=== PATIENT | female | born 1960 | race Caucasian/White ===

== ENCOUNTER 2018-03-05 19:38 | Inpatient (IN) | payer MEDICARE, MEDICAID ==
[~2018-03-05] VITALS: Ht 172.7 cm; Wt 148.8 kg
--- NOTE | 2018-03-05 19:45 | NUR ---
TO BED 9 A 58 YO FEMALE PATIENT BIBRA FROM [facility] FOR SOB AND ANXIETY SINCE 3PM 02 SAT 95% ON 3L ON ARRIVAL. PATIENT IS AAOX3, NAD NOTED. VSS. SKIN WARM AND DRY. KEPT HOB ELEVATED. COMFORT MEASURES RENDERED.
[2018-03-05] MEDS ORDERED: ALBUTEROL FS 2.5 MG/3 ML VIAL.NEB NEB ONE (21:00)
[2018-03-05 21:13] LABS: BASOPHILS % (AUTO) 0.5 % (0.0-2.0); EOSINOPHILS % (AUTO) 3.5 % (0.0-6.0); HEMATOCRIT 39 % (33-45); HEMOGLOBIN 13.3 g/dL (11.5-14.8); LYMPHOCYTES # (AUTO) 2.3 /CMM (0.8-4.8); LYMPHOCYTES % (AUTO) 38.2 % (20.0-44.0); MEAN CORPUSCULAR HGB CONC 34 g/dl (31.0-36.0); MEAN CORPUSCULAR VOLUME 83 fL (82-100); MONOCYTES # (AUTO) 0.3 /CMM (0.1-1.30); MONOCYTES % (AUTO) 5.7 % (2.0-12.0); NEUTROPHILS # (AUTO) 3.2 /CMM (1.8-8.9); NEUTROPHILS % (AUTO) 52.1 % (43.0-81.0); PLATELET COUNT (AUTO) 131 /CMM (150-450); RDW COEFFICIENT OF VARIATION 13.2 (11.5-15.0); RED BLOOD CELL COUNT(AUTO) 4.71 MIL/uL (4.0-5.2)
[2018-03-05] MEDS ORDERED: ALBUTEROL FS 2.5 MG/3 ML VIAL.NEB ONE (21:19)
[2018-03-05 21:28] LABS: CALCIUM, SERUM 8.4 mg/dL (8.5-10.1); CARBON DIOXIDE 32 mmol/L (21-32); CHLORIDE 105 mmol/L (98-107); CREATININE 0.9 mg/dL (0.6-1.3); GLUCOSE 120 mg/dL (74-106); POTASSIUM 4.1 mmol/L (3.5-5.1); SODIUM SERUM 141 mmol/L (136-145); UREA NITROGEN, BLOOD 26 mg/dL (7-18)
--- NOTE | 2018-03-05 21:35 | NUR ---
URINE COLLECTED VIA ASEPTIC IN-OUT CATHETER. SAMPLE TAKEN AND SENT TO LAB.
--- NOTE | 2018-03-05 21:35 | NUR ---
ONGOING BREATHING TREATMENT AT THIS TIME.
[2018-03-05 21:36] LABS: TROPONIN I < 0.017 ng/mL (0.00-0.056)
[2018-03-05] MEDS ORDERED: predniSONE 20 MG TABLET PO ONE (22:00)
[2018-03-05] MEDS ORDERED: predniSONE 20 MG TABLET ONE (22:02)
--- NOTE | 2018-03-06 00:05 | NUR ---
PT ASSIGNED TO TELE 111-1
[2018-03-06] MEDS ORDERED: predniSONE 20 MG TABLET PO ONE (00:28)
[2018-03-06] MEDS ORDERED: ENOXAPARIN SODIUM 40 MG/0.4 ML DISP.SYRIN SQ SCH (00:30)
[2018-03-06] MEDS ORDERED: MAGNESIUM HYDROXIDE 30 ML UDC PO PRN (00:30)
[2018-03-06] MEDS ORDERED: ALBUTEROL FS 2.5 MG/0.5 ML VIAL.NEB NEB ONE (00:30)
[2018-03-06] MEDS ORDERED: MORPHINE SULFATE INJ 2 MG/ML DISP.SYRIN IV PRN (00:30)
[2018-03-06] MEDS ORDERED: ONDANSETRON HCL/PF 4 MG/2 ML VIAL IVP PRN (00:30)
[2018-03-06] MEDS ORDERED: HYDROCODONE/APAP 5/325MG 1 EACH TABLET PO PRN (00:30)
[2018-03-06] MEDS ORDERED: MAG HYDROX/AL HYDROX/SIMETH 30 ML UDC PO PRN (00:30)
[2018-03-06] MEDS ORDERED: Z GUARD REMEDY 2 OZ OINT TP PRN (00:30)
[2018-03-06] MEDS ORDERED: IV NS 0.9% 500 ML BAG IV ONE (00:30)
[2018-03-06] MEDS: predniSONE 20 MG TABLET PO SCH ×2 (00:30→08:18)
[2018-03-06] MEDS ORDERED: IPRATROPIUM NEB FS 0.5 MG/2.5 ML AMPUL.NEB NEB ONE (00:30)
--- NOTE | 2018-03-06 00:52 | NUR ---
REPORT GIVEN TO DMITRI GUTHRIE FOR POORNIMA.
--- NOTE | 2018-03-06 01:18 | NUR ---
TRANSFERRED PATIENT TO TELE BED VIA ALS PROTOCOL, NO INCIDENT NOTED.
--- NOTE | 2018-03-06 01:44 | NUR ---
REHAB NURSE NOTES RECEIVED FROM ER, WITH VINNY RN AND TRANSPORT TEAM. PT VITAL SIGNS CHECKED, V/S STABLE. ON NASAL CANNULA 2L. SATURATING 92. WILL CONTINUE TO MONITOR PT CLOSELY.
[2018-03-06] MEDS ORDERED: AZITHROMYCIN 500 MG VIAL ONE (01:57)
[2018-03-06] MEDS: AZITHROMYCIN 500 MG in IV D5W 250 ML IV SCH ×2 (02:20→23:59)
[2018-03-06] MEDS: IV D5/0.45 NACL 1,000 ML IV PRN (02:22)
--- NOTE | 2018-03-06 02:40 | NUR ---
RN NOTES PREDNISONE 4OMG NOT GIVEN, CLARIFIED WITH HILARIA MORRIS SINCE 60 MG WAS GIVEN IN ER @2200. AFTER HOUR PHARMACY MADE AWARE.
[2018-03-06] MEDS ORDERED: MELO-107 PO (03:08)
[2018-03-06] MEDS ORDERED: BENZ1TAB7 PO (03:08)
[2018-03-06] MEDS ORDERED: OMEP20CA10 PO (03:08)
[2018-03-06] MEDS ORDERED: LEVE250T2 PO (03:08)
[2018-03-06] MEDS ORDERED: LEVO150T8 PO (03:08)
[2018-03-06] MEDS ORDERED: ALBUTEROL FS 2.5 MG/0.5 ML VIAL.NEB NEB PRN (03:30)
[2018-03-06] MEDS ORDERED: IPRATROPIUM NEB FS 0.5 MG/2.5 ML AMPUL.NEB NEB PRN ×2 (03:30→07:30)
[2018-03-06 04:00] VITALS: BP 143/96
--- NOTE | 2018-03-06 07:19 | NUR ---
STRATEGY MANAGER NOTES NO ACUTE CHANGES NOTED DURING THE SHIFT. PROVIDED COMFORT AND SAFETY. DUE MEDS GIVEN. WILL ENDORSE TO THE PM NURSE FOR POORNIMA
--- NOTE | 2018-03-06 07:30 | NUR ---
DIRECTOR OF MARKET INTELLIGENCE INITIAL NOTES RECEIVED PATIENT SLEEPING IN BED, AOX3, ON 2L NC, SATURATING 93% 02, NO SIGNS OF DISTRESS, ON TELE MONITORING SR 89 HR, IN DIAPER, IV R WRIST 20SL, INFUSING D51/2NS@ 50 ML/HR, BED IN LOW AND LOCKED POSITION CALL LIGHT WITHIN REACH WILL CONTINUE TO MONITOR.
[2018-03-06 08:00] VITALS: BP 170/101
[2018-03-06] MEDS: PANTOPRAZOLE 40 MG VIAL IV SCH (08:16)
[2018-03-06] MEDS: LEVETIRACETAM (250 MG) 250 MG TABLET PO SCH ×2 (08:16→16:53)
[2018-03-06] MEDS: BENZTROPINE MESYLATE (1 MG) 1 MG TABLET PO SCH ×2 (08:16→16:53)
[2018-03-06] MEDS: MELOXICAM 7.5 MG TABLET PO SCH (08:17)
[2018-03-06] MEDS: LEVOTHYROXINE SODIUM 75 MCG TABLET PO SCH (08:17)
--- NOTE | 2018-03-06 09:00 | NUR ---
HOOKER OPERATOR NOTES PATIENTS BP ELEVATED TO 170/ 101, PATIENT WAS MOVING AROUND AND STATING THE BP CUFF IS PAINFUL, REFUSING RECHECK OF BP AFTER MEDICATIONS WERE GIVEN, STATING SHE WANTS TO SLEEP, WILL ATTEMPT TO RECHECK LATER AND WILL MAKE MD AWARE.
[2018-03-06] MEDS: ACETAMINOPHEN 325 MG TABLET PO PRN (10:04)
--- NOTE | 2018-03-06 10:09 | NUR ---
BACTERIOLOGIST INDUSTRIAL NOTES PATIENT SEEN BY DR RAMÍREZ, AWARE OF PATIENTS HIGH BP.
[2018-03-06 12:00] VITALS: BP 172/90
[2018-03-06 16:00] VITALS: BP 154/85
[2018-03-06] MEDS ORDERED: hydrALAZINE HCL IV 20 MG VIAL IV PRN (16:00)
--- NOTE | 2018-03-06 18:54 | NUR ---
DRIED FRUIT WASHER END NOTES PATIENT RESTING IN BED, ALL NEEDS MET, WILL ENDORSE TO FUR TRIMMING MACHINE OPERATOR FOR CONTINUITY OF CARE.
[2018-03-06 20:00] VITALS: BP 133/79
--- NOTE | 2018-03-06 20:00 | NUR ---
RN INITIAL NOTES PT RESTING IN BED.NO SIGN OF DISTRESS. A&O X4 . R WRIST #20 WITH IV FLUIDS RUNNING, SITE INTACT AND PATENT. PLAN OF CARE DISCUSSED WITH PT. CALL LIGHT WITHIN REACH, BED IN LOW LOCKED POSITION. WILL CONT TO MONITOR.
[2018-03-06] MEDS: ENOXAPARIN SODIUM 40 MG/0.4 ML DISP.SYRIN SQ SCH (21:28)
[2018-03-07] VITALS: BP 135/82
[2018-03-07 04:00] VITALS: BP_SYST 117; BP_SYST 171; BP_DIAS 68
[2018-03-07] MEDS: IV D5/0.45 NACL 1,000 ML IV PRN (04:24)
--- NOTE | 2018-03-07 06:00 | NUR ---
RN CLOSING NOTES NO CHANGE IN PT CONDITION OVER NIGHT. PATIENT RESTING IN BED, ALL NEEDS MET, WILL ENDORSE TO AM SHIFT FOR CONTINUITY OF CARE.
--- NOTE | 2018-03-07 07:24 | NUR ---
RN NOTES RECEIVED PT FROM RANGE MOUNTER, A&0X3, ON 2L NC SATING WELL NO SOB OR DISTRESS NOTED. SR ON THE TELE RENETTA HR 71. RWRIST IV SITE INTACT WITH IVF AT 50ML/HR. BED LOCKED AND IN LOWEST POSITION, CALL LIGHT WITHIN REACH, SIDE RAILS UPX3, WILL CONT TO RENETTA.
[2018-03-07 08:00] VITALS: BP 131/75
[2018-03-07] MEDS: BENZTROPINE MESYLATE (1 MG) 1 MG TABLET PO SCH ×2 (08:21→16:36)
[2018-03-07] MEDS: predniSONE 20 MG TABLET PO SCH (08:21)
[2018-03-07] MEDS: LEVETIRACETAM (250 MG) 250 MG TABLET PO SCH ×2 (08:21→16:36)
[2018-03-07] MEDS: PANTOPRAZOLE 40 MG VIAL IV SCH (08:22)
[2018-03-07] MEDS: LEVOTHYROXINE SODIUM 75 MCG TABLET PO SCH (08:22)
[2018-03-07] MEDS: MELOXICAM 7.5 MG TABLET PO SCH (08:22)
[2018-03-07 09:11] LABS: BASOPHILS % (AUTO) 0.7 % (0.0-2.0); HEMATOCRIT 37 % (33-45); HEMOGLOBIN 12.4 g/dL (11.5-14.8); LYMPHOCYTES # (AUTO) 2.1 /CMM (0.8-4.8); LYMPHOCYTES % (AUTO) 43.5 % (20.0-44.0); MEAN CORPUSCULAR HGB CONC 34 g/dl (31.0-36.0); MEAN CORPUSCULAR VOLUME 83 fL (82-100); MONOCYTES # (AUTO) 0.3 /CMM (0.1-1.30); MONOCYTES % (AUTO) 5.3 % (2.0-12.0); NEUTROPHILS # (AUTO) 2.4 /CMM (1.8-8.9); NEUTROPHILS % (AUTO) 49.5 % (43.0-81.0); PLATELET COUNT (AUTO) 113 /CMM (150-450); RED BLOOD CELL COUNT(AUTO) 4.44 MIL/uL (4.0-5.2); WHITE BLOOD COUNT (AUTO) 4.8 K/uL (4.3-11.0)
[2018-03-07 09:26] LABS: CALCIUM, SERUM 9.1 mg/dL (8.5-10.1); CREATININE 0.8 mg/dL (0.6-1.3); MAGNESIUM 1.7 mg/dL (1.8-2.4); POTASSIUM 3.8 mmol/L (3.5-5.1)
[2018-03-07 12:00] VITALS: BP 135/79
--- NOTE | 2018-03-07 13:32 | NUR ---
RT NOTE ATTEMPTED ABG. PT REFUSED AT THIS TIME. RN AWARE. NO RESPIRATORY DISTRESS OR SOB NOTED.
[2018-03-07] MEDS: ACETAMINOPHEN 325 MG TABLET PO PRN (13:39)
[2018-03-07 16:00] VITALS: BP 167/84
[2018-03-07] MEDS: ALBUTEROL FS 2.5 MG/0.5 ML VIAL.NEB NEB SCH ×3 (16:03→23:30)
--- NOTE | 2018-03-07 18:28 | NUR ---
RN NOTES PT REMAINED IN STABLE CONDITION THROUGHOUT THE SHIFT, ALL NEEDS MET. NO SIGNIFICANT CHANGES NOTED. WILL ENDORSE TO ONCOMING SHIFT.
[2018-03-07 18:48] LABS: THYROID STIMULATING HORMONE 2.599 uIU/mL (0.358-3.74)
[2018-03-07 20:00] VITALS: BP 121/70
[2018-03-07] MEDS: ENOXAPARIN SODIUM 40 MG/0.4 ML DISP.SYRIN SQ SCH (21:27)
[2018-03-08] VITALS: BP 148/70
[2018-03-08] MEDS: AZITHROMYCIN 500 MG in IV D5W 250 ML IV SCH (01:11)
[2018-03-08] MEDS: ALBUTEROL FS 2.5 MG/0.5 ML VIAL.NEB NEB SCH ×4 (03:30→14:48)
[2018-03-08 04:00] VITALS: BP 132/83
--- NOTE | 2018-03-08 06:08 | NUR ---
RN CLOSING NOTES NO CHANGE IN PT CONDITION OVER NIGHT. PATIENT RESTING IN BED, ALL NEEDS MET, WILL ENDORSE TO AM SHIFT FOR CONTINUITY OF CARE.
[2018-03-08 08:00] VITALS: BP 150/82
[2018-03-08] MEDS: predniSONE 20 MG TABLET PO SCH (08:05)
[2018-03-08] MEDS: LEVETIRACETAM (250 MG) 250 MG TABLET PO SCH (08:05)
[2018-03-08] MEDS: LEVOTHYROXINE SODIUM 75 MCG TABLET PO SCH (08:05)
[2018-03-08] MEDS: BENZTROPINE MESYLATE (1 MG) 1 MG TABLET PO SCH (08:05)
[2018-03-08] MEDS: PANTOPRAZOLE 40 MG VIAL IV SCH (08:05)
[2018-03-08] MEDS: MELOXICAM 7.5 MG TABLET PO SCH (08:05)
[2018-03-08] MEDS ORDERED: PRED20TA PO (08:40)
--- NOTE | 2018-03-08 12:16 | NUR ---
MED SURG DISCHARGE NOTE PT DC TO [facility]. ALL ORDERS CARRIED OUT. REPORT CALLED @ 1000 AND GIVEN TO RACHEAL GUTHRIE. PT CLEAN AND DRY DC INSTRUCTIONS GIVEN AND PAPERWORK GIVEN TO EMT. REMOVED IV AND ID BAND. PT TRANSPORTED VIA AMBULANCE. PHOTOS TAKEN AND PLACED IN CHART.
[2018-03-08] MEDS ORDERED: AZITHROMYCIN 250 MG TABLET PO SCH (21:00)
== END 2018-03-08 13:30 | DRG 189 ==
LOC: ER 19:41 → TELE1 03-06 00:32 → MEDSG1 03-07 11:52
PROVIDERS: ADMIT Registered Nurse; ATTEND Internal Medicine
DX: J96.21 Acute and chronic respiratory failure with hypoxia (principal); E43 Unspecified severe protein-calorie malnutrition; D68.69 Other thrombophilia; E66.2 Morbid (severe) obesity with alveolar hypoventilation; Z68.43 Body mass index [BMI] 50.0-59.9, adult; F20.9 Schizophrenia, unspecified; J44.1 Chronic obstructive pulmonary disease with (acute) exacerbation; G40.909 Epilepsy, unspecified, not intractable, without status epilepticus; I10 Essential (primary) hypertension; K21.9 Gastro-esophageal reflux disease without esophagitis; F32.9 Major depressive disorder, single episode, unspecified; F41.9 Anxiety disorder, unspecified; Z88.1 Allergy status to other antibiotic agents; Z88.5 Allergy status to narcotic agent; Z88.0 Allergy status to penicillin; Z87.891 Personal history of nicotine dependence; Z87.01 Personal history of pneumonia (recurrent); Z86.73 Personal history of transient ischemic attack (TIA), and cerebral infarction without residual deficits; E03.9 Hypothyroidism, unspecified; M62.3 Immobility syndrome (paraplegic)
CPT/HCPCS: 36415; 71045-TC; 80048-TC; 80061-TC; 82746; 83735-TC; 83880; 84100-TC; 84443-TC; 84484-TC; 85025-TC; 85378-TC; 87081-TC; A4606; C9113; J0360; J0456; J1650; J7030; J7040; J7060; Z7610